=== PATIENT | female | born 1990 | race Two or more races ===

== ENCOUNTER 2017-10-16 16:35 | Inpatient (IN) | payer MEDICAID ==
[~2017-10-16] VITALS: Ht 167.6 cm; Wt 101.2 kg
[2017-10-16 17:23] LABS: Basophils # (auto) 0 uL; Basophils % (auto) 0.4 % (0.0-2.0); Eosinophils # (auto) 0.1 uL; Eosinophils % (auto) 0.8 % (0.0-7.0); Hematocrit 40.6 % (36.0-46.0); Hemoglobin 13.4 g/dL (12.2-16.2); Lymphocytes # (auto) 2.2 uL; Lymphocytes % (auto) 21.3 % (10.0-50.0); Mean Corpuscular Hemoglobin 30.1 pg (28.0-32.0); Mean Corpuscular Volume 91.1 fL (80.0-100.0); Monocytes # (auto) 0.6 uL; Monocytes % (auto) 5.8 % (0.0-12.0); Neutrophils # (auto) 7.6 uL; Neutrophils % (auto) 71.7 % (37.0-80.0); Nucleated Red Blood Cells % 0.1 %; Platelet Count (auto) 214 10^3/uL (140-450); Red Blood Cells 4.46 10^6/uL (4.0-5.20); Red Cell Distribution Width 13.7 % (11.8-14.3); White Blood Cell 10.6 10^3/uL (4.4-10.8)
[2017-10-16 17:29] LABS: Urine Bacteria NONE SEEN /hpf (None Seen); Urine Blood 2+ /uL (Negative); Urine Mucus FEW (None Seen); Urine Specific Gravity 1.021 (1.001-1.035); Urine WBC 12 /hpf (0 - 5)
[2017-10-16 17:38] LABS: INR 0.9 (0.9-1.15); Partial Thromboplastin Time 27.5 sec (22.64-33.71); Prothrombin Time 9.8 sec (9.37-12.3)
[2017-10-16] MEDS ORDERED: PREN-96 PO (17:51)
[2017-10-16 17:55] LABS: Albumin 2.7 g/dL (3.4-5.0); BUN/Creatinine Ratio 26.3; Calcium 8.7 mg/dL (8.5-10.1); Potassium 4.1 mmol/L (3.5-5.1)
[2017-10-16 18:00] LABS: Uric Acid 3.9 mg/dL (2.6-6.0)
[2017-10-16 18:07] LABS: Bilirubin, Total 0.3 mg/dL (0.2-1.0)
[2017-10-16] MEDS ORDERED: DERMOPLAST 60ML BOTTLE TOP PRN (18:45)
[2017-10-16] MEDS: LACTATED RINGER'S 1,000 ML IV SCH (19:03)
[2017-10-16] MEDS ORDERED: LACT. RINGERS/OXYTOCIN 20UNITS 1,000 ML IV SCH (19:03)
[2017-10-16] MEDS ORDERED: WITCH HAZEL-GLYCERIN PAD TOP PRN (19:15)
[2017-10-16] MEDS ORDERED: LIDOCAINE 2%HCL (LOCAL ANESTH.) INJ 20ML MDV IJ PRN (19:15)
[2017-10-16] MEDS ORDERED: PHISODERM TOP SOLN 240ML BTL TOP PRN (19:15)
[2017-10-16] MEDS ORDERED: PROMETHAZINE HCL 25 MG/ML 1ML IV PRN (20:00)
[2017-10-16] MEDS ORDERED: NALBUPHINE HCL 10 MG/1ml INJECTION IV PRN (20:00)
[2017-10-16] MEDS ORDERED: hydrALAZINE HCL 20 MG/ML VL IV PRN (21:30)
[2017-10-17] VITALS (14 sets, daily range): BP systolic 115–167; BP diastolic 50–88
[2017-10-17] MEDS: LACTATED RINGER'S 1,000 ML IV SCH ×3 (03:03→20:12)
[2017-10-17] MEDS ORDERED: MAGNESIUM SULFATE 40MG/ML 1,000 ML IV ONE (06:56)
[2017-10-17] MEDS: MAGNESIUM SULFATE 40MG/ML 1,000 ML IV SCH ×2 (07:20→23:58)
[2017-10-17] MEDS ORDERED: ACETAMINOPHEN 325 MG TAB PO PRN (08:45)
[2017-10-17] MEDS: LACT. RINGERS/OXYTOCIN 20UNITS 1,000 ML IV SCH ×2 (09:36→16:16)
[2017-10-18] VITALS (14 sets, daily range): BP systolic 108–135; BP diastolic 63–83
[2017-10-18] MEDS: IBUPROFEN 600 MG TAB PO PRN ×2 (02:42→12:10)
[2017-10-18] MEDS: LACTATED RINGER'S 1,000 ML IV SCH (09:32)
[2017-10-19 03:45] VITALS: BP 137/82
[2017-10-19] MEDS: IBUPROFEN 600 MG TAB PO PRN (06:42)
[2017-10-19 07:58] VITALS: BP 126/74
[2017-10-19 11:55] VITALS: BP 131/80
== END 2017-10-19 12:00 | disposition home or self-care (01) | DRG 560 ==
LOC: LDRP 16:35 → OBSVTOIN 16:35 → LDRP 20:22
PROVIDERS: ADMIT Obstetrics & Gynecology; ATTEND Obstetrics & Gynecology
PROC: 10907ZC Drainage of Amniotic Fluid, Therapeutic from Products of Conception, Via Natural or Artificial Opening (ICD-10-PCS; principal; 2017-10-17)
PROC: 10E0XZZ Delivery of Products of Conception, External Approach (ICD-10-PCS; 2017-10-17)
DX: O14.94 Unspecified pre-eclampsia, complicating childbirth (principal); O48.0 Post-term pregnancy; O13.4 Gestational [pregnancy-induced] hypertension without significant proteinuria, complicating childbirth; O69.81X0 Labor and delivery complicated by cord around neck, without compression, not applicable or unspecified; Z3A.40 40 weeks gestation of pregnancy; Z37.0 Single live birth
CPT/HCPCS: 36415; 59025; 59409; 76818; 80053; 81001; 81002; 83735; 84550; 85025; 85610; 85730; 86850; 86900; 86901; 94762; 96361; 96366; J2590

== ENCOUNTER 2019-09-12 07:05 | Observation (INO) | payer MEDICAID ==
[~2019-09-12] VITALS: Ht 167.6 cm; Wt 101.6 kg
[~2019-09-12 07:05] MED LIST: PREN-96 PO
== END 2019-09-12 09:45 | disposition home or self-care (01) | DRG 566 ==
LOC: LDRP 07:05
PROVIDERS: ADMIT Specialist; ATTEND Specialist
DX: O62.9 Abnormality of forces of labor, unspecified (principal); O48.0 Post-term pregnancy; Z3A.40 40 weeks gestation of pregnancy
CPT/HCPCS: 59025; 81002; G0378

== ENCOUNTER 2019-09-12 14:25 | Inpatient (IN) | payer MEDICAID ==
[~2019-09-12] VITALS: Ht 1 cm; Wt 0.5 kg
[2019-09-12] MEDS ORDERED: LACT. RINGERS/OXYTOCIN 20UNITS 1,000 ML IV SCH (14:42)
[2019-09-12] MEDS ORDERED: PHISODERM TOP SOLN 240ML BTL TOP PRN (14:45)
[2019-09-12] MEDS ORDERED: LIDOCAINE 2%HCL (LOCAL ANESTH.) INJ 20ML MDV ID ONE (14:45)
[2019-09-12] MEDS ORDERED: CARBOPROST TROMETHAMINE 250 MCG/1ML VIAL IM PRN (14:45)
[2019-09-12] MEDS ORDERED: DERMOPLAST 60ML BOTTLE TOP PRN (14:45)
[2019-09-12] MEDS ORDERED: WITCH HAZEL-GLYCERIN PAD TOP PRN (14:45)
[2019-09-12] MEDS ORDERED: LACTATED RINGER'S 1,000 ML IV SCH (15:05)
[2019-09-12 15:18] LABS: Basophils # (auto) 0.1 uL; Basophils % (auto) 0.4 % (0.0-2.0); Eosinophils # (auto) 0 uL; Hematocrit 37.7 % (36.0-46.0); Hemoglobin 12.8 g/dL (12.2-16.2); Lymphocytes % (auto) 6.8 % (10.0-50.0); Mean Corpuscular Hemoglobin 30.4 pg (28.0-32.0); Mean Corpuscular Hgb Conc. 33.8 g/dL (32.0-36.0); Mean Corpuscular Volume 89.9 fL (80.0-100.0); Monocytes # (auto) 0.3 uL; Monocytes % (auto) 2.3 % (0.0-12.0); Neutrophils # (auto) 13.4 uL; Neutrophils % (auto) 90.5 % (37.0-80.0); Platelet Count (auto) 194 10^3/uL (140-450); Red Cell Distribution Width 13.8 % (11.8-14.3); White Blood Cell 14.8 10^3/uL (4.4-10.8)
[2019-09-12 15:33] LABS: INR 0.98 (0.9-1.15); Partial Thromboplastin Time 28.3 sec (23.64-32.05)
[2019-09-12 15:39] LABS: Urine Bacteria NONE SEEN /hpf (None Seen); Urine Blood 2+ /uL (Negative); Urine Mucus FEW (None Seen); Urine Specific Gravity 1.028 (1.001-1.035); Urine WBC 2 /hpf (0 - 5)
[2019-09-12 15:41] LABS: Alcohol, Urine < 3.0 mg/dL (0-5); Amphetamine Screen, Urine NEGATIVE (NEGATIVE); Barbiturate Scree,Urine NEGATIVE (NEGATIVE); Benzodiazephine Screen, Urine NEGATIVE (NEGATIVE); Cannabinoid Screen, Urine NEGATIVE (NEGATIVE); Cocaine Screen, Urine NEGATIVE (NEGATIVE); Opiate Scree,Urine NEGATIVE (NEGATIVE); Phencyclidine Screen, Urine NEGATIVE (NEGATIVE)
[2019-09-12 15:41] LABS: Albumin 2.9 g/dL (3.4-5.0); Calcium 8.4 mg/dL (8.5-10.1); Potassium 3.9 mmol/L (3.5-5.1)
[2019-09-12 15:45] LABS: BUN/Creatinine Ratio 20.8; Bilirubin, Total 0.4 mg/dL (0.2-1.0); Total Protein 7.1 g/dL (6.4-8.2)
[2019-09-12] MEDS ORDERED: TERBUTALINE SULFATE 1 MG/ML 1ML VIAL SC ONE (15:45)
[2019-09-12] MEDS ORDERED: BUTORPHANOL TARTRATE 2 MG/1 ML VIAL ONE (17:07)
[2019-09-12] MEDS ORDERED: BUTORPHANOL TARTRATE 2 MG/1 ML VIAL IV ONE (17:15)
[2019-09-12] MEDS ORDERED: ACETAMINOPHEN 325 MG TAB PO PRN (18:00)
[2019-09-12] MEDS: IBUPROFEN 600 MG TAB PO PRN (18:19)
[2019-09-12] MEDS ORDERED: TETANUS-DIPTH-ACEL PERTUSSIS 0.5ML SYRG IM ONE (21:15)
[2019-09-12] MEDS ORDERED: INFLUENZA QUAD 2019-2020 0.5ml SYRG IM ONE (21:15)
[2019-09-12 22:00] VITALS: BP 108/52
[2019-09-13 03:20] VITALS: BP 109/63
[2019-09-13] MEDS: IBUPROFEN 600 MG TAB PO PRN (05:06)
[2019-09-13 07:00] VITALS: BP 106/58
[2019-09-13 11:00] VITALS: BP 114/52
[2019-09-13 15:00] VITALS: BP 106/63
[2019-09-13 19:00] VITALS: BP 106/58
[2019-09-13 23:00] VITALS: BP 114/52
[2019-09-14 03:15] VITALS: BP 117/70
[2019-09-14] MEDS ORDERED: INFLUENZA QUAD 2019-2020 0.5ml SYRG IM ONE (05:22)
[2019-09-14] MEDS ORDERED: TETANUS-DIPTH-ACEL PERTUSSIS 0.5ML SYRG IM ONE (05:26)
[2019-09-14 06:08] LABS: RPR Non Reactive (Non Reactive)
[2019-09-14 07:20] VITALS: BP 103/61
[2019-09-14 11:15] VITALS: BP 108/69
[2019-09-14] MEDS: IBUPROFEN 600 MG TAB PO PRN (11:49)
== END 2019-09-14 12:50 | disposition home or self-care (01) | DRG 560 ==
LOC: LDRP 14:25 → OBSVTOIN 14:25 → LDRP 09-13 05:42
PROVIDERS: ADMIT Specialist; ATTEND Specialist
PROC: 10E0XZZ Delivery of Products of Conception, External Approach (ICD-10-PCS; principal; 2019-09-12)
DX: O69.81X0 Labor and delivery complicated by cord around neck, without compression, not applicable or unspecified (principal); Z37.0 Single live birth; Z3A.40 40 weeks gestation of pregnancy
CPT/HCPCS: 36415; 59025; 59409; 80053; 80307; 81001; 81002; 84112; 85025; 85610; 85730; 86592; 86850; 86900; 86901; 90715; 96361; 96366; 96372; G0378; J2590